=== PATIENT | female | born 1945 | race Caucasian/White ===

== ENCOUNTER 2020-03-06 23:18 | Emergency (ER) | payer OTHER ==
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
[2020-03-07] MEDS ORDERED: LEVALBUTEROL 1.25 MG/3 ML NEB ONE (01:06)
[2020-03-07] MEDS ORDERED: NA CHLORIDE 0.9% 1,000 ML ONE (01:06)
[2020-03-07 01:09] LABS: Basophils % 0.6 % (0-1.3); Lymphocytes % 17.9 % (15.3-44.8); MPV 9.6 fL (7.6-11.3); RBC Red Blood Cell Count 3.76 M/uL (3.86-4.86)
[2020-03-07 01:12] LABS: Protime INR 1.03
[2020-03-07 01:26] LABS: ALT/SGPT 19 U/L (12-78); AST/SGOT 14 U/L (15-37); Albumin 3.6 g/dL (3.4-5.0); Alkaline Phosphatase 52 U/L (45-117); BUN Blood Urea Nitrogen 13 mg/dL (7-18); Bicarbonate 28 mmol/L (21-32); Bilirubin Direct < 0.1 mg/dL (0-0.2); Bilirubin Total 0.2 mg/dL (0.2-1.0); Glucose Level 139 mg/dL (74-106); Magnesium 2.1 mg/dL (1.8-2.4); NT PRO-BNP 185 pg/mL (<450); Potassium 4.4 mmol/L (3.5-5.1); Protein, Total 7.5 g/dL (6.4-8.2); Sodium Level 141 mmol/L (136-145); Troponin (Emerg Dept Use Only) < 0.02 ng/mL (0.0-0.045)
--- NOTE | 2020-03-07 04:16 | ER ---
Nurse's Notes [facility] Name: Desiree Fernandez Age: 74 yrs Sex: Female : 1945 Arrival Date: 03/06/2020 Time: 23:20 Bed 13 Private MD: Diagnosis: Aspiration of fluid as the cause of abnormal reaction of the patient, or of later complication, without mention of misadventure at the time of the procedure;Cough;Gastro-esophageal reflux disease;Gastric contents in esophagus;Chest pain, unspecified Presentation: 03/06 23:26 Chief complaint: Patient states: Noticed chest pressure and spitting up frothy sputum ll1 today. Had ocular surgery today at [facility]. Coronavirus screen: Proceed with normal triage. Patient reports a cough. Patient denies shortness of breath or difficulty breathing. Patient denies measured and/or subjective temperature greater than 100.4F prior to today's visit. Patient denies travel on a cruise ship or to a country the [facility] currently lists as an affected area. Patient denies contact with known and/or suspected case of COVID-19. Ebola Screen: Patient denies travel to an Ebola-affected area in the 21 days before illness onset. Initial Sepsis Screen: Does the patient meet any 2 criteria? No. Patient's initial sepsis screen is negative. Risk Assessment: Do you want to hurt yourself or someone else? Patient reports no desire to harm self or others. Onset of symptoms was March 06, 2020. 23:26 Method Of Arrival: Wheelchair ll1 23:26 Acuity: APURVA 3 ll1 03/07 00:00 Initial Sepsis Screen: Does the patient have a suspected source of infection? No. wh Patient's initial sepsis screen is negative. Historical: - Allergies: 03/06 23:31 scopolamine HBr; ll1 - PMHx: 23:31 Hypertension; SVT; skin graft malignant tumor removed; ll1 - PSHx: 23:31 tumor removed from head; tear duct drainage; ll1 - Immunization history:: Flu vaccine is up to date. - Social history:: Patient/guardian denies using alcohol, street drugs, tobacco products, Smoking status: Patient/guardian denies using. - Family history:: not pertinent. Screenin/03 00:00 Abuse screen: Denies threats or abuse. Denies injuries from another. Nutritional wh screening: No deficits noted. Tuberculosis screening: No symptoms or risk factors identified. Fall Risk None identified. Assessment: 00:00 General: Appears in no apparent distress. Behavior is calm, cooperative, appropriate wh for age. Pain: Complains of pain in chest Pain does not radiate. Pain currently is 2 out of 10 on a pain scale. Quality of pain is described as pressure, Pain began gradually. Neuro: Level of Consciousness is awake, alert, obeys commands, Oriented to person, place, time, situation, Appropriate for age. Cardiovascular: Heart tones S1 S2 Rhythm is regular. Respiratory: Airway is patent Respiratory effort is even, unlabored, Respiratory pattern is regular, symmetrical, Breath sounds are clear bilaterally. GI: Abdomen is flat, non-distended. : No signs and/or symptoms were reported regarding the genitourinary system. EENT: No signs and/or symptoms were reported regarding the EENT system. Derm: Skin is intact, is healthy with good turgor, Skin is pink, warm \T\ dry. normal. Musculoskeletal: Circulation, motion, and sensation intact. 01:15 Reassessment: Patient appears in no apparent distress at this time. No changes from previously documented assessment. Patient and/or family updated on plan of care and expected duration. Pain level reassessed. Patient is alert, oriented x 3, equal unlabored respirations, skin warm/dry/pink. 02:30 Reassessment: Reassessment: Patient appears in no apparent distress at this time. No wh changes from previously documented assessment. Patient and/or family updated on plan of care and expected duration. Pain level reassessed. Patient is alert, oriented x 3, equal unlabored respirations, skin warm/dry/pink. 03:45 Reassessment: Patient appears in no apparent distress at this time. No changes from previously documented assessment. Patient and/or family updated on plan of care and expected duration. Pain level reassessed. Patient is alert, oriented x 3, equal unlabored respirations, skin warm/dry/pink. MD at bedside explaining POC. 04:40 Reassessment: Patient appears in no apparent distress at this time. No changes from previously documented assessment. Patient and/or family updated on plan of care and expected duration. Pain level reassessed. Patient is alert, oriented x 3, equal unlabored respirations, skin warm/dry/pink. Vital Signs: 03/06 23:26 BP 138 / 66; Pulse 62; Resp 18; Temp 98.0; Pulse Ox 98% ; Weight 88.9 kg; Height 5 ft. ll1 5 in. (165.10 cm); Pain 05/14; 03/07 01:15 BP 117 / 69; Pulse 58; Resp 18; Pulse Ox 98% ; 02:30 BP 119 / 80; Pulse 70; Resp 18; Pulse Ox 96% on R/A; wh 03:30 BP 116 / 50; Pulse 67; Resp 18; Pulse Ox 96% on R/A; wh 04:30 BP 106 / 95; Pulse 64; Resp 18; Pulse Ox 95% on R/A; wh 03/06 23:26 Body Mass Index 32.62 (88.90 kg, 165.10 cm) 1 ED Course: 03/06 23:20 Patient arrived in ED. cl3 23:30 Triage completed. [facility] 23:32 Arm band placed on. [facility] 23:52 Tacos Will MD is Attending Physician. [facility] 23:55 EKG completed in triage. Results shown to MD. 1 03/07 00:00 Patient has correct armband on for positive identification. Placed in gown. Bed in low wh position. Call light in reach. Side rails up X 1. hat blocking operator on. Pulse ox on. NIBP on. 00:00 Patient maintains SpO2 saturation greater than 95% on room air. 00:09 Lazarus Carolina is Primary Nurse. 00:40 Inserted saline lock: 20 gauge in right antecubital area, using aseptic technique. Blood collected. 02:16 CT Chest For PE Angio: cp, sob, sp surgery In Process Unspecified. EDMS 02:21 XRAY Chest (1 view) In Process Unspecified. EDMS 04:13 Jorge Luis Jacobsen MD is Referral Physician. lamin Administered Medications: 01:10 Drug: NS 0.9% 1000 ml Route: IV; Rate: 75 ml/hr; Site: right antecubital; 04:39 Follow up: Response: No adverse reaction; IV Status: Completed infusion 01:10 Drug: Xopenex 1.25 mg Route: Inhalation; 04:25 Drug: Rocephin 1 grams Route: IV; Rate: per protocol; Site: right antecubital; 04:39 Follow up: Response: No adverse reaction; IV Status: Completed infusion Outcome: 04:15 Discharge ordered by MD. kimble 04:41 Patient left the ED. Signatures: Dispatcher [employer] EDTacos Carroll MD MD cha Habalo, Lazarus Geoffrey, Tyrone cl3 Marcia Hale RN RN ll1 Corrections: (The following items were deleted from the chart) 03/06 23:53 23:26 Coronavirus screen: Patient denies a cough. Patient denies shortness of breath or ll1 difficulty breathing. Patient denies measured and/or subjective temperature greater than 100.4F prior to today's visit. Patient denies travel on a cruise ship or to a country the [facility] currently lists as an affected area. Patient denies contact with known and/or suspected case of COVID-19. ll1 23:53 23:26 Coronavirus screen: Proceed with normal triage. Patient reports a cough. Patient ll1 denies shortness of breath or difficulty breathing. Patient denies measured and/or subjective temperature greater than 100.4F prior to today's visit. Patient denies travel on a cruise ship or to a country the [facility] currently lists as an affected area. Patient denies contact with known and/or suspected case of COVID-19. ll1
--- NOTE | 2020-03-07 04:17 | EDPHYS ---
Physician Documentation [facility] Name: Desiree Fernandez Age: 74 yrs Sex: Female : 1945 Arrival Date: 03/06/2020 Time: 23:20 Bed 13 Private MD: ED Physician Tacos Will HPI: 03/07 00:15 This 74 yrs old Female presents to ER via Wheelchair with complaints of Chest lamin Pressure. 00:15 The patient or guardian reports chest pain that is located primarily in the substernal lamin area, anterior chest wall, bilaterally. Onset: 9 hour(s) ago. The pain does not radiate. Associated signs and symptoms: Pertinent positives: cough, shortness of breath. The chest pain is described as aching. Duration: The patient or guardian reports multiple episodes, with no pattern. Modifying factors: The symptoms are alleviated by remaining still, the symptoms are aggravated by nothing. Severity of pain: At its worst the pain was mild in the emergency department the pain is unchanged. The patient has not experienced similar symptoms in the past. Historical: - Allergies: 03/06 23:31 scopolamine HBr; ll1 - PMHx: 23:31 Hypertension; SVT; skin graft malignant tumor removed; ll1 - PSHx: 23:31 tumor removed from head; tear duct drainage; ll1 - Immunization history:: Flu vaccine is up to date. - Social history:: Patient/guardian denies using alcohol, street drugs, tobacco products, Smoking status: Patient/guardian denies using. - Family history:: not pertinent. ROS: 03/07 00:15 Constitutional: Negative for fever, chills, and weight loss, Eyes: Negative for injury, lamin pain, redness, and discharge, ENT: Negative for injury, pain, and discharge, Neck: Negative for injury, pain, and swelling, Abdomen/GI: Negative for abdominal pain, nausea, vomiting, diarrhea, and constipation, Back: Negative for injury and pain, : Negative for injury, bleeding, discharge, and swelling, MS/Extremity: Negative for injury and deformity, Skin: Negative for injury, rash, and discoloration, Neuro: Negative for headache, weakness, numbness, tingling, and seizure, Psych: Negative for depression, anxiety, suicide ideation, homicidal ideation, and hallucinations, Allergy/Immunology: Negative for hives, rash, and allergies, Endocrine: Negative for neck swelling, polydipsia, polyuria, polyphagia, and marked weight changes, Hematologic/Lymphatic: Negative for swollen nodes, abnormal bleeding, and unusual bruising. Cardiovascular: Positive for chest pain. Respiratory: Positive for cough, foamy. MS/extremity: Negative for acute changes. Exam: 00:17 Constitutional: This is a well developed, well nourished patient who is awake, alert, lamin and in no acute distress. Head/Face: Normocephalic, atraumatic. Eyes: Pupils equal round and reactive to light, extra-ocular motions intact. Lids and lashes normal. Conjunctiva and sclera are non-icteric and not injected. Cornea within normal limits. Periorbital areas with no swelling, redness, or edema. ENT: Nares patent. No nasal discharge, no septal abnormalities noted. Tympanic membranes are normal and external auditory canals are clear. Oropharynx with no redness, swelling, or masses, exudates, or evidence of obstruction, uvula midline. Mucous membranes moist. Neck: Trachea midline, no thyromegaly or masses palpated, and no cervical lymphadenopathy. Supple, full range of motion without nuchal rigidity, or vertebral point tenderness. No Meningismus. Chest/axilla: Normal chest wall appearance and motion. Nontender with no deformity. No lesions are appreciated. Cardiovascular: Regular rate and rhythm with a normal S1 and S2. No gallops, murmurs, or rubs. Normal PMI, no JVD. No pulse deficits. Respiratory: Lungs have equal breath sounds bilaterally, clear to auscultation and percussion. No rales, rhonchi or wheezes noted. No increased work of breathing, no retractions or nasal flaring. Abdomen/GI: Soft, non-tender, with normal bowel sounds. No distension or tympany. No guarding or rebound. No evidence of tenderness throughout. Back: No spinal tenderness. No costovertebral tenderness. Full range of motion. Female : Normal external genitalia. Skin: Warm, dry with normal turgor. Normal color with no rashes, no lesions, and no evidence of cellulitis. MS/ Extremity: Pulses equal, no cyanosis. Neurovascular intact. Full, normal range of motion. Neuro: Awake and alert, GCS 15, oriented to person, place, time, and situation. Cranial nerves II-XII grossly intact. Motor strength 5/5 in all extremities. Sensory grossly intact. Cerebellar exam normal. Normal gait. Psych: Awake, alert, with orientation to person, place and time. Behavior, mood, and affect are within normal limits. 02:43 ECG was reviewed by the Attending Physician. [facility] 02:44 ECG was reviewed by the Attending Physician. [facility] Vital Signs: 03/06 23:26 BP 138 / 66; Pulse 62; Resp 18; Temp 98.0; Pulse Ox 98% ; Weight 88.9 kg; Height 5 ft. ll1 5 in. (165.10 cm); Pain 8/10; 03/07 01:15 BP 117 / 69; Pulse 58; Resp 18; Pulse Ox 98% ; wh 02:30 BP 119 / 80; Pulse 70; Resp 18; Pulse Ox 96% on R/A; 03:30 BP 116 / 50; Pulse 67; Resp 18; Pulse Ox 96% on R/A; wh 04:30 BP 106 / 95; Pulse 64; Resp 18; Pulse Ox 95% on R/A; wh 03/06 23:26 Body Mass Index 32.62 (88.90 kg, 165.10 cm) ll1 MDM: 03/06 23:52 Patient medically screened. lamin 03/07 00:18 Differential diagnosis: abnormal EKG, acute myocardial infarction, chest wall pain, lamin costochondritis, hiatal hernia, pleurisy, pneumonia, pulmonary embolus, stable angina, unstable angina. HEART Score: History: Slightly Suspicious (0), ECG: Non specific repolarization disturbance / LBTB / PM (1), Age: > or = 65 years (2), Risk Factors: 1 or 2 risk factors (1), [Hypertension] [Obesity]. The patient was not given aspirin in the Emergency Department. Aspirin not given, patient refused. The patient's deep vein thrombosis risk score was calculated as follows: Total Score: 0. This patient was found to be at low risk for a deep vein thrombosis by using the Well's assessment criteria. The patient's pulmonary embolism risk score was calculated as follows: Total Score: 0-2 points. This patient was found to be at low risk for a pulmonary embolism by using the Well's assessment criteria. AKOSUA Risk Score: 1 - patient's age is greater or equal to 65 years, TOTAL SCORE = 1. Data reviewed: vital signs, nurses notes, lab test result(s), EKG, radiologic studies, plain films. Data interpreted: compliance monitor: rate is 62 beats/min, rhythm is normal sinus rhythm, Pulse oximetry: on room air is 98 %. Test interpretation: by ED physician or midlevel provider: ECG, plain radiologic studies. Counseling: I had a detailed discussion with the patient and/or guardian regarding: the historical points, exam findings, and any diagnostic results supporting the discharge/admit diagnosis, lab results, radiology results. 03:10 Awaiting: CT scan results, waiting on read. ED course: pt swallows without difficulty, lamin no cp, labs trop x2 normal. 04:10 ED course: ct confirms upper lobe mosiac pattern, distal esophagus is moderately lamin patulous and debris filled. ED course: all results explained to the patient, will take abx, elevate head of bed, use incentive spirometer, follow up and return if symptoms increase or persist. 03/07 00:13 Order name: Basic Metabolic Panel; Complete Time: 01:52 [facility] 03/07 00:13 Order name: CBC with Diff; Complete Time: 01:22 [facility] 03/07 00:13 Order name: LFT's; Complete Time: 01:52 [facility] 03/07 00:13 Order name: Magnesium; Complete Time: 01:52 [facility] 03/07 00:13 Order name: NT PRO-BNP; Complete Time: 01:52 [facility] 03/07 00:13 Order name: PT-INR; Complete Time: 01:22 [facility] 03/07 00:13 Order name: Troponin (emerg Dept Use Only); Complete Time: 01:52 [facility] 03/07 00:13 Order name: XRAY Chest (1 view) [facility] 03/07 00:14 Order name: INCENTIVE SPIROMETRY [facility] 03/07 01:03 Order name: D-Dimer; Complete Time: 01:22 [facility] 03/07 01:23 Order name: CT Chest For PE Angio: cp, sob, sp surgery [facility] 03/07 01:49 Order name: Troponin (emerg Dept Use Only); Complete Time: 03:09 lp1 03/06 23:53 Order name: EKG - Nurse/Tech; Complete Time: 23:55 ll1 03/07 00:13 Order name: EKG; Complete Time: 00:14 lamin 03/07 00:13 Order name: Cardiac monitoring; Complete Time: [facility] 03/07 00:13 Order name: IV Saline Lock; Complete Time: [facility] 03/07 00:13 Order name: Labs collected and sent; Complete Time: : [facility] 03/07 00:13 Order name: O2 Per Protocol; Complete Time: 00: [facility] 03/07 00:13 Order name: O2 Sat Monitoring; Complete Time: [facility] 03/07 02:14 Order name: EKG; Complete Time: 02:15 [facility] 03/07 02:14 Order name: EKG - Nurse/Tech; Complete Time: 02:24 [facility] 03/07 03:10 Order name: PO challenge; Complete Time: 03:30 [facility] EC:43 Rate is 60 beats/min. Rhythm is regular. QRS [place] is Normal. SC interval is normal. QRS lamin interval is normal. QT interval is normal. No Q waves. T waves are Normal. No ST changes noted. Clinical impression: Normal ECG and No evidence of ischemia. Interpreted by me. Reviewed by me. 02:44 Rate is 67 beats/min. Rhythm is regular. QRS [place] is Normal. SC interval is normal. QRS lamin interval is normal. QT interval is normal. No Q waves. T waves are Normal. No ST changes noted. Clinical impression: Normal ECG and No evidence of ischemia. Interpreted by me. Reviewed by me. Administered Medications: 01:10 Drug: NS 0.9% 1000 ml Route: IV; Rate: 75 ml/hr; Site: right antecubital; 04:39 Follow up: Response: No adverse reaction; IV Status: Completed infusion 01:10 Drug: Xopenex 1.25 mg Route: Inhalation; 04:25 Drug: Rocephin 1 grams Route: IV; Rate: per protocol; Site: right antecubital; 04:39 Follow up: Response: No adverse reaction; IV Status: Completed infusion Disposition: 03/07/20 04:15 Discharged to Home. Impression: Aspiration of fluid as the cause of abnormal reaction of the patient, or of later complication, without mention of misadventure at the time of the procedure, Cough, Gastro-esophageal reflux disease, Gastric contents in esophagus, Chest pain, unspecified. - Condition is Stable. - Discharge Instructions: Nonspecific Chest Pain, Cool Mist Vaporizer, Incentive Spirometer, Nonspecific Chest Pain, Leji-se-Kews, Aspiration Precautions, Adult, Aspiration Pneumonia. - Prescriptions for Augmentin 875- 125 mg Oral Tablet - take 1 tablet by ORAL route every 12 hours for 7 days; 14 tablet. - Medication Reconciliation Form, Thank You Letter, Antibiotic Education, Prescription Opioid Use form. - Follow up: Private Physician; When: 2 - 3 days; Reason: Recheck today's complaints, Continuance of care, Re-evaluation by your physician. Follow up: Jorge Luis Jacobsen MD; When: 2 - 3 days; Reason: Recheck today's complaints, Continuance of care, Re-evaluation by your physician. - Problem is new. - Symptoms have improved. Signatures: Dispatcher [employer] Tacos Carroll MD MD cha Habalo, Winsy wh Lewis, Lynsay RN RN ll1 Corrections: (The following items were deleted from the chart) 01:03 00:15 D-DIMER+[id number].BRZ ordered. [facility] 04:41 04:15 03/07/2020 04:15 Discharged to Home. Impression: Aspiration of fluid as the cause wh of abnormal reaction of the patient, or of later complication, without mention of misadventure at the time of the procedure; Cough; Gastro-esophageal reflux disease; Gastric contents in esophagus; Chest pain, unspecified. Condition is Stable. Forms are Medication Reconciliation Form, Thank You Letter, Antibiotic Education, Prescription Opioid Use. Follow up: Private Physician; When: 2 - 3 days; Reason: Recheck today's complaints, Continuance of care, Re-evaluation by your physician. Follow up: Jorge Luis Jacobsen; When: 2 - 3 days; Reason: Recheck today's complaints, Continuance of care, Re-evaluation by your physician. Problem is new. Symptoms have improved. laimn
[2020-03-07] MEDS ORDERED: CEFTRIAXONE/SWI 1gm 1 GM/10 ML SYR ONE (04:35)
[2020-03-07 04:49] VITALS: TEMP 98
[2020-03-07 04:54] VITALS: BP 106/95; O2SAT 95
--- NOTE | 2020-03-07 09:40 | RAD REPORT ---
EXAM DESCRIPTION: Virgilio Single View03/07/2020 2:20 am CLINICAL HISTORY: Chest pain COMPARISON: 2010 FINDINGS: The lungs appear clear of acute infiltrate. The heart appears borderline enlarged. Small to moderate hiatal hernia IMPRESSION: No acute abnormalities displayed
--- NOTE | 2020-03-07 16:29 | EKG ---
Test Date: 2020-03-06 Test Time: 23:45:57 Bioengineer: LML MEASUREMENT RESULTS: Intervals: Rate: 60 OH: 172 QRSD: 88 QT: 402 QTc: 402 Wheeler: P: 17 OH: 172 QRS: -19 T: 9 INTERPRETIVE STATEMENTS: Normal sinus rhythm with sinus arrhythmia Nonspecific ST and T wave abnormality Abnormal ECG Compared to ECG 03/06/2020 23:39:56 ST (T wave) deviation now present Electronically Signed On 03-07-20 16:27:33 CDT by Joe Gonzalez
--- NOTE | 2020-03-07 16:29 | EKG ---
Test Date: 2020-03-07 Test Time: 02:40:20 Yarder Puncher: BROOKE MEASUREMENT RESULTS: Intervals: Rate: 67 CA: 182 QRSD: 92 QT: 428 QTc: 452 Mcclure: P: 29 CA: 182 QRS: -19 T: 4 INTERPRETIVE STATEMENTS: Normal sinus rhythm Normal ECG Compared to ECG 03/06/2020 23:45:57 Sinus arrhythmia no longer present ST (T wave) deviation no longer present Electronically Signed On 03-07-20 16:27:30 CDT by Joe Gonzalez
--- NOTE | 2020-03-07 17:19 | RAD REPORT ---
EXAM DESCRIPTION: CT - Chest For Pe Angio - 03/07/2020 7:04 am CLINICAL HISTORY: Chest pain; Dyspnea; Cough TECHNIQUE: Contiguous axial images obtained through the chest during angiographic phase following th e uneventful administration of IV contrast. Sagittal and coronal reformatted images were provided. [place] P reformatted images were provided. This exam was performed according to our departmental dose-optimization program, which includes autom ated exposure control, adjustment of the mA and/or kV according to patient size and/or use of iterati ve reconstruction technique. COMPARISON: No prior exams provided for comparison. FINDINGS: Diagnostic quality: There is good opacification of the pulmonary arterial tree. Motion art ifact degrades image quality and limits evaluation of segmental and subsegmental vessels. Lungs: Mild bilateral upper lobe mosaic attenuation. Airways are patent. Pleura: No effusion. No pneumothorax. Heart and pericardium: The heart is enlarged. No pericardial effusion. Mediastinum and todd: No pathologically enlarged lymph nodes. The distal esophagus is moderately patu lous and debris-filled. Lower neck and chest wall: Unremarkable Vessels: No pulmonary arterial filling defects. Mild atherosclerotic disease. No thoracic aortic aneu rysm. Upper abdomen: Prior gastric banding. Bones: Mild multilevel spondylosis. IMPRESSION: 1. Motion artifact degrades image quality and limits evaluation of segmental and subsegmental vessel s. No central pulmonary embolic disease. 2. Mild bilateral upper lobe mosaic attenuation. Differential considerations include small airways disease, small vessel disease and interstitial infiltrates. 3. Prior gastric banding. The distal esophagus is moderately patulous and debris-filled. 4. Other findings as above. Electronically signed by: Lorne Vargas MD 03/07/2020 2:45 AM CDT Due to temporary technical issues with the PACS/Fluency reporting system, reports are being signed by the in house radiologist without review a sa courtesy to ensure prompt reporting. The interpreting r adiologist is fully responsible for the content of the report.
== END 2020-03-07 04:41 | disposition home or self-care (01) ==
LOC: ER 23:18
DX: R05 Cough (principal); K21.9 Gastro-esophageal reflux disease without esophagitis; Y84.4 Aspiration of fluid as the cause of abnormal reaction of the patient, or of later complication, without mention of misadventure at the time of the procedure; K22.8 Other specified diseases of esophagus; I10 Essential (primary) hypertension; Z88.8 Allergy status to other drugs, medicaments and biological substances
CPT/HCPCS: 96361; 93005 ×2; 85025; 80048; 36415; 83735; 85610; 85379; 80076; 84484 ×2; 83880; 71275; 71045; 96374; 99285; Q9967; J0696; J7030

== ENCOUNTER 2021-11-05 05:19 | Emergency (ER) | payer OTHER ==
--- OUTSIDE RECORDS SUMMARY | 2021-11-05 05:23 | XMS REPORT | Continuity of Care Document ---
:1945 Author Organization [facility] [place] t Address [address] [place] [address] Care Team Providers Name Role Phone [phone] Primary Care Physician Unavailable CASEY HUSAIN Attending Clinician Unavailable Casey Husain MD Attending Clinician Only, Test Attending Clinician Unavailable Pob, Lab Main Attending Clinician Unavailable Doctor Unassigned, Name Attending Clinician Unavailable STACEY MCCOY Attending Clinician Unavailable Usman ARMSTRONG, Loida Attending Clinician Malgorzata ARMSTRONG Attending Clinician Loida ARTIS Attending Clinician Unavailable Criss ARMSTRONG Attending Clinician MICHI Attending Clinician Unavailable CASEY HUSAIN Admitting Clinician Unavailable Casey Husain MD Admitting Clinician Payers Payer Name Policy Type Policy Number Effective Date Expiration Date S марина AETNA MANAGED [id number] 2020 MEDICARE PPO-NIESHA 00:00:00 AETNA MEDICAREAETNA [id number] 2016 MD Ashlie zamudio MEDICARE 00:00:00 [id number] -[place], [place] [address]Medicare Problems Condition Condition Condition Status Onset Resolution Last Treating Co mments Source Name Details Category Date Date Treatment Clinician Date 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 Allergies, Adverse Reactions, Alerts Allergy Allergy Status Severity Reaction(s) Onset Inactive Treating Comm ents Source Name Type Date Date Clinician SCOPOLAM DRUG Active Med Hallucinates Un lin INE INGREDI 3-30 ity of 00:00: [place] 00 Medical Branch Scopolam Propensi Active Hallucinatio Univers ine ty to ns 3-30 ity of adverse 00:00: [place] reaction 00 Medical s to Branch drug Family History Family Member Diagnosis Comments Start Date Stop Date Source Natural father Lung cancer MD [place] on Natural mother Breast cancer MD Arnaud hogan Social History Social Habit Start Date Stop Date Quantity Comments Source Exposure to Not sure [facility] SARS-CoV-2 (event) [facility] History of tobacco Cigarette Smoker MD Will use Alcohol intake 2020-05-14 2020-05-14 Current drinker MD Ashlie zamudio 00:00:00 00:00:00 of alcohol (finding) Cigarettes smoked 2019-03-25 2019-03-25 MD Arnaud hogan current (pack per 00:00:00 00:00:00 day) - Reported Cigarette 2019-03-25 2019-03-25 MD Will pack-years 00:00:00 00:00:00 Tobacco use and 2019-03-25 2019-03-25 Smokeless MD [place] on exposure 00:00:00 00:00:00 tobacco non-user Tobacco Comment 2019-03-14 2019-03-14 currently vaping MD Will 00:00:00 00:00:00 [birth year] MD [place] on 00:00:00 00:00:00 Smoking Status Start Date Stop Date Source Never sm[facility] Branch Current every day 2021-07-16 00:00:00 [facility] smoker [facility] Branch Ex-smoker 2019-03-25 00:00:00 2019-03-25 00:00:00 MD Kitchen son Medications Ordered Filled Start Stop Current Ordering Indication Dosage Frequency Signature Comments Components Source Medication Medication Date Date Medication? Clinician (SIG) Name Name gentamicin 2020-10 Yes PRN, Univers injection 0-14 Starting ity of 15:39: on [place] [id number] 10/14/21 Medical at 1039, Branch Until Discontinu ed, SAMMI, Intra-op DUOVISC 2020-10 Yes PRN, Univers (DUOVISC 0-14 Starting ity of VISCO 15:39: on Emily [place] ELASTIC) 3 00 07/18/21 Medic al %-4 %(0.5 at 1039, Branch mL) 1 % Until (0.55 mL) Discontinu intraocular ed, injection Routine, Intra-op gentamicin 2020-10- No PRN, Univer s injection 0-14 07-18 Starting ity o f 15:39: 19:24 on Emily [place] 00 :48 07/18/21 Medical at 1039, Branch Until Emily 07/18/21 at 1424, SAMMI, Intra-op DUOVISC 2020-10- No PRN, Univers (DUOVISC 0-14 07-18 Starting ity of VISCO 15:39: 19:[address] [facility] ELASTIC) 3 00 :48 07/18/21 Medic al %-4 %(0.5 at 1039, Branch mL) 1 % Until Emily (0.55 mL) 07/18/21 intraocular at 1424, injection Routine, Intra-op neomycin-po 2020-10 Yes PRN, Univer s lymyxin-dex 0-14 Starting ity of amethasone 15:38: on Thu (MAXITROL) 00 07/18/21 Medic al 3.5 at 1038, Branch mg/g-10,000 Until unit/g-0.1 Discontinu % ed, ophthalmic Routine, ointment Intra-op dexamethaso 2020-10 Yes PRN, Univer s ne 0-14 Starting ity of (DECADRON 15:38: on [facility] [place] PHOSPHATE) 00 07/18/21 Medic al injection at 1038, Branch Until Discontinu ed, Routine, Intra-op dexamethaso 2020-10- No PRN, Unive rs ne 0-14 10-14 Starting ity of (DECADRON 15:38: 19:[address] [facility] PHOSPHATE) 00 :48 07/18/21 Medic al injection at 1038, Branch Until Emily 07/18/21 at 1424, Routine, Intra-op neomycin-po 2020-10- No PRN, Unive rs lymyxin-dex 0-14 10-14 Starting ity of amethasone 15:38: 19:24 on [facility] [place] (MAXITROL) 00 :48 07/18/21 Medic al 3.5 at 1038, Branch mg/g-10,000 Until Emily unit/g-0.1 07/18/21 % at 1424, ophthalmic Routine, ointment Intra-op NaCl 0.9% 2020-10 Yes CONTINUOUS Un lin (NS) 0-14 PRN, [place]y of injection 15:28: [place] 00 on [facility] 07/18/21 Branch at 1028, Until Discontinu ed, Routine, Intra-op EPINEPHrine 2020-10 Yes PRN, Univer s (PF) 0-14 Starting ity of 1:1,000 (1 15:28: on [facility] [place] mg/mL) 00 07/18/21 Medical (ADRENALIN at 1028, Branc h (PF)) Until injection Discontinu ed, Routine, Intra-op ceFAZolin 2020-10 Yes CONTINUOUS Un lin (ANCEF) 0-14 PRN, ity of injection 15:28: [place] 00 on [facility] 07/18/21 Branch at 1028, Until Discontinu ed, SAMMI, Intra-op balanced 2020-10 Yes PRN, Univers salt soln 0-14 Starting ity of no.2 irrig. 15:28: on [facility] [place] (BSS) 00 07/18/21 Medical ophthalmic at 1028, Branc h solution Until Discontinu ed, Routine, Intra-op NaCl 0.9% 2020-10- No CONTINUOUS U nivers (NS) 0-14 - PRN, ity of injection 15:28: 19:24 Starting [place] 00 :48 on [facility] 07/18/21 Branch at 1028, Until Emily 07/18/21 at 1424, Routine, Intra-op EPINEPHrine 2020-10- No PRN, Unive rs (PF) 0-14 -14 Starting ity of 1:1,000 (1 15:28: 19:24 on [facility] [place] mg/mL) 00 :48 07/18/21 Medical (ADRENALIN at 1028, Branc h (PF)) Until Emily injection 07/18/21 at 1424, Routine, Intra-op ceFAZolin 2020-10- No CONTINUOUS U nivers (ANCEF) 0-14 10-14 PRN, ity of injection 15:28: 19:24 Starting [place] as 00 :48 on Emily Medical 07/18/21 Branch at 1028, Until Emily 07/18/21 at 1424, SAMMI, Intra-op balanced 2020-10- No PRN, Univers salt soln 0-14 10-14 Starting ity o f no.2 irrig. 15:28: 19:24 on Emily [place] (BSS) 00 :48 07/18/21 Medical ophthalmic at 1028, Branc h solution Until Emily 07/18/21 at 1424, Routine, Intra-op water for 2020-10 Yes PRN, Univers irrigation 0-14 Starting ity o f irrigation 15:25: on Emily [place] solution 00 07/18/21 Medical at 1025, Branch Until Discontinu ed, Routine, Intra-op water for 2020-10- No PRN, Univers irrigation 0-14 10-14 Starting ity of irrigation 15:25: 19:24 on [facility] [place] solution 00 :48 07/18/21 Medical at 1025, Branch Until Emily 07/18/21 at 1424, Routine, Intra-op eye block 2020-10 Yes PRN, Univers syringe 11 0-14 Starting ity o f mL 15:23: on Emily [place] 00 07/18/21 Medical at 1023, Branch Until Discontinu ed, Intra-op tetracaine 2020-10 Yes PRN, Univers (PONTOCAINE 0-14 Starting ity of ) 0.5 % 15:23: on Emily [place] ophthalmic 00 07/18/21 Medic al drops at 1023, Branch Until Discontinu ed, Routine, Intra-op eye block 2020-10- No PRN, Univers syringe 11 0-14 10-14 Starting ity of mL 15:23: 19:24 on Emily [place] 00 :48 07/18/21 Medical at 1023, Branch Until Emily 07/18/21 at 1424, Intra-op tetracaine 2020-10- No PRN, Univer s (PONTOCAINE 0-14 10-14 Starting ity of ) 0.5 % 15:23: 19:24 on Emily [place] ophthalmic 00 :48 07/18/21 Medic al drops at 1023, Branch Until Emily 07/18/21 at 1424, Routine, Intra-op mydriatic 2020-10- No .5mL 0.5 mL, Univ ers #5 0-14 10-14 Right Eye, ity of ophthalmic 14:00: 13:56 ONCE, 1 [place] solution 00 :00 dose, On Medical 0.5 mL [place] Branch syringe 07/18/21 at 0900, Routine, DSU Pre-op lactated 2020-10- No 1000mL at 42 Unive rs ringers IV 0-14 10-14 mL/hr, ity of infusion 14:00: 13:52 1,000 mL, [place] 1,000 mL 00 :00 IV Medical Infusion, Branch ONCE, 1 dose, On Emily 07/18/21 at 0900, Routine, DSU Pre-op mydriatic 2020-10- No .5mL 0.5 mL, Univ ers #5 0-14 10-14 Right Eye, ity of ophthalmic 14:00: 13:56 ONCE, 1 [place] solution 00 :00 dose, On Medical 0.5 mL [place] Branch syringe 07/18/21 at 0900, Routine, DSU Pre-op lactated 2020-10- No 1000mL at 42 Unive rs ringers IV 0-14 10-14 mL/hr, ity of infusion 14:00: 13:52 1,000 mL, [place] 1,000 mL 00 :00 IV Medical Infusion, Branch ONCE, 1 dose, On Emily 07/18/21 at 0900, Routine, DSU Pre-op levETIRAcet 2020-10 Yes 500mg Take 500 U nivers am (KEPPRA) 0-14 mg by ity of 500 mg 12:24: mouth 2 [place] tablet 48 (two) Medical times Branch daily. lisinopril 2020-10 Yes 5mg Take 5 mg Un lin (PRINIVIL,Z 0-14 by mouth ity of ESTRIL) 5 12:24: daily. [place] mg tablet 48 Medical Branch HYDROcodone 2020-10 Yes 1{tbl} Take 1 Tab Univers -acetaminop 0-14 by mouth ity of hen (NORCO) 12:24: every 6 [place] 7.5-325 mg 48 (six) Medical per tablet hours as Branc h needed for Pain. aspirin-wade 2020-10 Yes 1{tbl} Take 1 Un lin taminophen- 0-14 tablet by ity of caffeine 12:24: mouth [place] (EXCEDRIN 48 every 6 Medical MIGRAINE) (six) Branch 250-250-65 hours as mg per needed for tablet Pain. levETIRAcet 2020-10 Yes 500mg Take 500 U nivers am (KEPPRA) 0-14 mg by ity of 500 mg 12:24: mouth 2 [place] tablet 48 (two) Medical times Branch daily. lisinopril 2020-10 Yes 5mg Take 5 mg Un lin (PRINIVIL,Z 0-14 by mouth ity of ESTRIL) 5 12:24: daily. [place] mg tablet 48 Medical Branch HYDROcodone 2020-10 Yes 1{tbl} Take 1 Tab Univers -acetaminop 0-14 by mouth ity of hen (NORCO) 12:24: every 6 [place] as 7.5-325 mg 48 (six) Medical per tablet hours as Branc h needed for Pain. aspirin-wade 2020-10 Yes 1{tbl} Take 1 Un lin taminophen- 0-14 tablet by ity of caffeine 12:24: mouth [place] (EXCEDRIN 48 every 6 Medical MIGRAINE) (six) Branch 250-250-65 hours as mg per needed for tablet Pain. co-enzyme Yes 30mg Take 30 mg MD Q-10 30 mg 2-12 by mouth Imtiaz so capsule 11:06: daily. n 53 ZINC Yes 1{tbl} Take 1 MD ACETATE 2-12 tablet by Anderso ORAL 11:06: mouth n 53 daily. BIOTIN ORAL Yes 1{tbl} Take 1 MD 2-12 tablet by Anderso 11:06: mouth n 53 daily. CANNABIDIOL Yes 1{appli Take 1 M D , CBD, 2-12 cation} applicatio Arnaud rso EXTRACT 11:06: n by mouth n ORAL 53 daily. vitamin B Yes 1{capsu Take 1 MD complex 2-12 le} capsule by Ronnie o capsule 11:06: mouth n 53 daily. TURMERIC Yes Take by MD ORAL 2-12 mouth Anderso 11:06: daily. n 53 meloxicam Yes MD (MOBIC) 15 2-10 Anderso mg tablet 00:00: n 00 HYDROcodone Yes MD -acetaminop 1-14 Anderso hen (NORCO) 00:00: n 10 mg-325 00 mg per tablet cyclobenzap Yes TAKE 1 MD rine 9-02 TABLET BY Anderso (FLEXERIL) 00:00: MOUTH ONCE n 5 mg tablet 00 DAILY metoprolol Yes Supraventri 25mg Take 1 MD succinate 7-29 cular tablet (25 And erso (TOPROL XL) 00:00: tachycardia mg) by n 25 mg 24 hr 00 mouth tablet daily. acetaminoph Yes Squamous 650mg Take 2 MD en 7-26 cell tablets Anderso (TYLENOL) 00:00: carcinoma (650 mg) n 325 mg 00 of skin of by mouth tablet scalp every 4 (four) hours as needed for mild pain, headaches or fever. traMADol Yes Squamous 50mg Take 1 MD (ULTRAM) 50 7-26 cell tablet (50 An derso mg tablet 00:00: carcinoma mg) by n 00 of skin of mouth scalp every 6 (six) hours as needed for moderate pain. lisinopril Yes 5mg Take 5 mg Un lin (PRINIVIL,Z 3-31 by mouth ity of ESTRIL) 5 10:11: daily. [place] mg tablet 55 Medical Branch HYDROcodone Yes 1{tbl} Take 1 Tab Univers -acetaminop 3-31 by mouth ity of hen (NORCO) 10:11: every 6 [place] as 7.5-325 mg 55 (six) Medical per tablet hours as Branc h needed for Pain. levETIRAcet Yes 500mg Take 500 U nivers am (KEPPRA) 3-31 mg by ity of 500 mg 10:11: mouth 2 [place] tablet 55 (two) Medical times Branch daily. lisinopril Yes 5mg Take 5 mg Un lin (PRINIVIL,Z 3-31 by mouth ity of ESTRIL) 5 10:11: daily. [place] mg tablet 55 Medical Branch HYDROcodone 2015-0 Yes 1{tbl} Take 1 Tab Univers -acetaminop 3-31 by mouth ity of hen (NORCO) 10:11: every 6 [place] as 7.5-325 mg 55 (six) Medical per tablet hours as Branc h needed for Pain. levETIRAcet 2015- Yes 500mg Take 500 U nivers am (KEPPRA) 3-31 mg by ity of 500 mg 10:11: mouth 2 [place] tablet 55 (two) Medical times Branch daily. lisinopril Yes 5mg Take 5 mg Un lin (PRINIVIL,Z 3-31 by mouth ity of ESTRIL) 5 10:11: daily. [place] mg tablet 55 Medical Branch HYDROcodone 0 Yes 1{tbl} Take 1 Tab Univers -acetaminop 3-31 by mouth ity of hen (NORCO) 10:11: every 6 [place] as 7.5-325 mg 55 (six) Medical per tablet hours as Branc h needed for Pain. levETIRAcet Yes 500mg Take 500 U nivers am (KEPPRA) 3-31 mg by ity of 500 mg 10:11: mouth 2 [place] tablet 55 (two) Medical times Roxie daily. Vital Signs Vital Name Observation Time Observation Value Comments Source Systolic blood 2021-07-18 15:57:00 118 mm[facility]Hg[facility] Diastolic blood 2021-07-18 15:57:00 72 mm[Hg] [facility] Heart rate 2021-07-18 15:57:00 68 /min [facility] Respiratory rate 2021-07-18 15:57:00 22 /min [facility] Oxygen saturation in 2021-07-18 15:57:00 97 /min [facility] Arterial blood by [facility] Pulse oximetry Branch Body temperature 2021-07-18 15:46:00 36.17 Mabel [facility] Body weight 2021-07-05 17:14:00 80.7 kg [facility] BMI 2021-07-05 17:14:00 29.61 kg/m2 [facility] Oxygen saturation in 2021-07-18 15:57:00 97 /min [facility] Arterial blood by [facility] Pulse oximetry Branch Systolic blood 2021-07-18 15:57:00 118 mm[Hg] Univer sity of pressure [facility] Diastolic blood 2021-07-18 15:57:00 72 mm[Hg] Unive [facility] Heart rate 2021-07-18 15:57:00 68 /min [facility] Respiratory rate 2021-07-18 15:57:00 22 /min [facility] Body temperature 2021-07-18 15:46:00 36.17 Mabel [facility] Body weight 2021-07-05 17:14:00 80.7 kg [facility] BMI 2021-07-05 17:14:00 29.61 kg/m2 [facility] WEIGHT 2020-06-04 11:57:00 87.7 kg Systolic blood 2020-11-16 17:00:58 156 mm[Hg] pressure Diastolic blood 2020-11-16 17:00:58 80 mm[Hg] MD Ashlie zamudio pressure Heart rate 2020-11-16 17:00:58 74 /min MD Kitchen son Body temperature 2020-11-16 17:00:58 36.61 Mabel MD Garrett mcintosh Oxygen saturation in 2020-11-16 17:00:58 98 /min MD Will Arterial blood by Pulse oximetry Procedures Procedure Date / Time Performing Source Performed Clinician PHACOEMULSIFICATION OF 2021-07-18 Nikita Husain [facility] CATARACT WITH INTRAOCULAR 15:10:00 Casey Karimi [facility] LENS IMPLANT ASSIGNMENT OF BENEFITS 2021-07-11 Doctor Unassigned, [facility] 20:26:18 [place] [facility] Plan of Care Planned Activity Planned Date Details Comments Source Future Scheduled Test 1950 00:00:00 COVID-19 Vaccination MD Will (1) [code = COVID-19 Vaccination (1)] Encounters Start End Encounter Admission Attending Care Care Encounter Source Date/Time Date/Time Type Type Clinicians Facility Department ID 2021-08-06 Outpatient R RODRIGUE [facility] OPH [id number] [facility] 05:01:38 NIKITA amezquita [facility] 2021-07-18 2021-07-18 Hospital Rodrigue, [facility] [id number] Univers 08:31:00 11:21:00 Encounter Nikita King [id number] ity of [place] [id number] [place] [id number] [facility] 071 Branch 2021-07-18 2021-07-18 Surgery Rodrigue, [facility] [id number] Univers 10:28:00 11:05:00 Nikita King [id number] i ty of [place] [id number] [place] [id number] [facility] 020 Branch 2021-07-16 2021-07-16 Laboratory Only, Adc Test [facility] [id number]. [id number] Univers 14:39:39 14:54:39 Only RodrigueNikita russell 350.1.1 3.10 ity of [place] [id number] [place] [id number] [address] 2021-07-16 2021-07-16 Outpatient R RODRIGUE [facility] [id number] Univers 14:30:00 14:30:00 NIKITA amezquita [facility] 2021-07-11 2021-07-11 Powder Cutting Operator Kacie, Adc Lab Main [facility] 1.2.8 [id number] Univers 15:32:27 15:47:27 Visit Nikita Husain 350.1.1 3.10 ity [place] [id number] [place] [facility] [id number] [facility] 353 [facility] 2021-07-11 2021-07-11 [facility] [id number] Univers 15:45:00 15:45:00 NIKITA amezquita [facility] 2021-07-11 2021-07-11 Orders Doctor JAIN [id number] Univers 00:00:00 00:00:00 Only Unassigned, KIRSTIE [id number] ity of [place] [facility] [id number] [place] as [id number] [place] [address] Branch 2020-12-27 2020-12-27 Outpatient DARIUS [facility] [id number] [facility] 09:44:00 23:59:00 [place] 2020-11-16 2020-11-16 Outpatient MIRTA ARTIS MDA MDA [id number] 10:56:37 11:56:29 SAMANTHA armstrong 2020-06-04 2020-06-04 Outpatient MIRTA ARTIS MDA MDA [id number] 11:56:07 23:59:00 SAMANTHA armstrong 2020-05-14 2020-05-14 Outpatient WANDA AVITIA MDA MDA [id number] 06:52:46 23:59:00 Ronnie armstrong 2020-05-14 2020-05-14 Outpatient MIRTA ARTIS MDA MDA [id number] 09:45:58 10:28:43 SAMANTHA armstrong 2020-05-14 2020-05-14 Outpatient WANDA AVITIA MDA MDA [id number] 06:52:00 06:52:00 Ronnie armstrong 2020-03-06 2020-03-06 Outpatient DARIUS MHH [facility] [id number] [facility] 09:58:00 09:58:00 [place] 2020-02-20 2020-02-20 Outpatient WANDA AVITIA MDA MDA [id number] 08:01:04 08:01:04 Ronnie armstrong 2019-11-03 2019-11-03 Outpatient MHHH [facility] [id number] [facility] 07:08:00 07:08:00 2019-02-08 2019-02-08 Outpatient MHHH [facility] [id number] [facility] 08:13:00 08:13:00 Results This patient has no known results.
--- OUTSIDE RECORDS SUMMARY | 2021-11-05 05:23 | XMS REPORT | Clinical Summary ---
:1945 Author Organization [facility] MD Kitchen [facility] Address [address] [place] [address] Care Team Providers Name Role Phone Chance Schaefer MD Unavailable Ken Jacobsen MD Unavailable Loida Mary MD Primary Care Provider Allergies Active Allergy Reactions Severity Noted Date Comments Scopolamine Other (See Comments) Medium 01/02/2016 Medications Medication Sig Dispensed Refills Start Date End Date Status co-enzyme Q-10 30 mg Take 30 mg by mouth 0 Active capsule daily. ZINC ACETATE ORAL Take 1 tablet by 0 Active mouth daily. BIOTIN ORAL Take 1 tablet by 0 A ctive mouth daily. CANNABIDIOL, CBD, Take 1 application 0 Active EXTRACT ORAL by mouth daily. vitamin B complex Take 1 capsule by 0 Active capsule mouth daily. TURMERIC ORAL Take by mouth 0 Ac tive daily. acetaminophen Take 2 tablets (650 30 tablet 0 04/29/2019 Active (TYLENOL) 325 mg mg) by mouth every tabletIndications: 4 (four) hours as Squamous cell needed for mild carcinoma of skin of pain, headaches or scalp fever. Additional Information Patient not taking. Informan t: Self, Reported on 11/16/2020 traMADol (ULTRAM) 50 mg Take 1 tablet (50 mg) 30 tablet 0 04/05 Active tabletIndications: Squamous cell by mouth every 6 carcinoma of skin of scalp (six) hours as needed for moderate pain. metoprolol succinate (TOPROL XL) Take 1 tablet (25 mg) 30 tablet 0 05/02/2019 Active 25 mg 24 hr tabletIndications: by mouth daily. 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 03/09/2019 Encounters Date Type Specialty Care Team Description 11/16/2020 Office Visit Dermatology Albert Mary, Actinic ke ratosis (Primary Dx); Seborrheic keratosis; Shelia Mcgarry, Marlena b enign melanocytic nevi; History of squa mous cell carcinoma of skin; History of ines gnant basal cell neoplasm of skin 11/16/2020 Travel 11/07/2020 Orders Only Infectious Diseases Rosa M Kahn MD S ARS-CoV-2 vaccination after 11/05/2020 Surgical History Surgery Date Site/Laterality Comments BACK SURGERY SPINAL FUSION APPENDECTOMY HYSTERECTOMY WRIST SURGERY TONSILLECTOMY FOOT SURGERY BOWEL RESECTION HERNIA REPAIR REDUCTION MAMMAPLASTY TEAR DUCT SURGERY MOHS PROCEDURE scalp MA EXC SKIN MALIG 0.6-1 CM 04/26/2019 Midline Proce dure: EXCISION OF REMAINDR BODY MALIGNANT LESION OF SCALP; Surgeon: Albert Mary MD; Location: MAIN O R; Service: HN - HEAD & NECK SURGERY Medical devices from this surgery are in t Implants section. MA SPLIT 04/26/2019 Thigh/Right Procedure: SPLIT THICKNESS GRFT,HEAD,FAC,HAND,FEET <100 SKI N GRAFT to scalp; Surgeon: [facility] Chuck Allred MD; Location: MAIN OR; Servic e: PLS - PLASTIC SURGERY Medical devices from this surgery are in t he Implants section. MA FREE SKIN FLAP W MICROVASC 04/26/2019 Thigh/Left Pr ocedure: FREE SKIN OR ANAST FASCIOCUTANOUS F LAP; Surgeon: Chuck Allred MD; Location: MAIN OR; Servic e: PLS - PLASTIC SURGERY Medical devices from this surgery are in t Implants section. Medical History Medical History Date Comments Cancer Hypertension Scoliosis H/O: Tia Family History Medical History Relation Name Comments Lung cancer Father Breast cancer Mother Relation Name Status Comments Father Mother Social History Tobacco Use Types Packs/Day Years Used Date Former Smoker Cigarettes 0.5 10 Smokeless Tobacco: Never Used Comments: currently vaping Alcohol Use Standard Drinks/Week Comments Yes 3 (1 standard drink = 0.6 oz pure alcoho l) Sex Assigned at Date Recorded Not on file Obstetrics History Last Filed Vital Signs Vital Sign Reading Time Taken Comments Blood Pressure 156/80 11/16/2020 11:00 AM LAB ANIMAL TECHNOLOGIST Pulse 74 11/16/2020 11:00 AM LAB ANIMAL TECHNOLOGIST Temperature 36.6 C (97.9 F) 11/16/2020 11:00 AM LAB ANIMAL TECHNOLOGIST Respiratory Rate - - Oxygen Saturation 98% 11/16/2020 11:00 AM LAB ANIMAL TECHNOLOGIST Inhaled Oxygen Concentration - - Weight - - Height - - Body Mass Index - - Plan of Treatment Health Maintenance Due Date Last Done Comments COVID-19 Vaccination (1) 1950 Implants Implanted Type Area Alpine Guide Device Shelf Model / Identifier Expiration Serial / Date Lot Whipped Topping Supervisor Microvascular Anastomotic Device 2.5mm - [id number] Card ioPulm Right: 800APP 02/22/2024 [id number] / Implanted: Qty: 1 on 04/26/2019 by Chuck Allred MD at [facility] / [id number] Results Not on fileafter 11/05/2020 Insurance Payer Benefit Plan / Subscriber ID Effective Dates Phone Addre ss Type Group AETNA MEDICARE AETNA MEDICARE [id number] 2016-Aaliyah AYALA [id number] [place] [id number] Advance Directives Code Status Date Activated Date Inactivated Comments Full Code 04/26/2019 7:19 AM 05/02/2019 4:35 PM Care Teams Igniter Capper Relationship Specialty Start Date End Date Chance Schaefer, STARR - External Follow Dermatology 03/01/19 [address] [place] [address] Jorge Luis Jacobsen PCP - External Primary Internal Medicine 03/01/19 MD Ken Care Provider [address] [place] [phone] Albert Mary MD PCP - General Head and Neck Surgery 03/01/[address] [place] [address] [phone]
--- NOTE | 2021-11-05 06:08 | EDPHYS ---
Physician Documentation [facility] Name: Desiree Fernandez Age: 76 yrs Sex: Female : 1945 Arrival Date: 11/05/2021 Time: 05:23 Bed 5 Private MD: Jorge Luis Jacobsen V ED Physician Tacos Will HPI: 11/05 06:04 This 76 yrs old Female presents to ER via Ambulatory with complaints of lamin Rectal Bleeding. 06:04 The patient presents to the emergency department with bleeding from the rectum/anus, lamin that is moderate. Onset: The symptoms/episode began/occurred last night. Context: the patient has no known special context relating to the rectal area complaint(s). Modifying factors: The symptoms are alleviated by remaining still, The symptoms are aggravated by bowel movement, sitting position. Associate signs and symptoms: The patient has no apparent associated signs or symptoms. The patient has not experienced similar symptoms in the past. Historical: - Allergies: 05:31 Scopolamine HBr; tw5 - PMHx: 05:31 Hypertension; skin graft malignant tumor removed; SVT; tw5 - Immunization history:: Flu vaccine is up to date. - Social history:: Smoking status: Patient reports the use of cigarette tobacco products, " Sometimes I smoke those little cigars.". - Family history:: not pertinent. ROS: 06:04 Constitutional: Negative for fever, chills, and weight loss, Eyes: Negative for injury, lamin pain, redness, and discharge, ENT: Negative for injury, pain, and discharge, Neck: Negative for injury, pain, and swelling, Cardiovascular: Negative for chest pain, palpitations, and edema, Respiratory: Negative for shortness of breath, cough, wheezing, and pleuritic chest pain, Back: Negative for injury and pain, : Negative for injury, bleeding, discharge, and swelling, MS/Extremity: Negative for injury and deformity, Skin: Negative for injury, rash, and discoloration, Neuro: Negative for headache, weakness, numbness, tingling, and seizure, Psych: Negative for depression, anxiety, suicide ideation, homicidal ideation, and hallucinations, Allergy/Immunology: Negative for hives, rash, and allergies, Endocrine: Negative for neck swelling, polydipsia, polyuria, polyphagia, and marked weight changes, Hematologic/Lymphatic: Negative for swollen nodes, abnormal bleeding, and unusual bruising. 06:04 Abdomen/GI: Positive for bowel incontinence, of the left lower quadrant. Exam: 06:04 Constitutional: This is a well developed, well nourished patient who is awake, alert, lamin and in no acute distress. Head/Face: Normocephalic, atraumatic. Eyes: Pupils equal round and reactive to light, extra-ocular motions intact. Lids and lashes normal. Conjunctiva and sclera are non-icteric and not injected. Cornea within normal limits. Periorbital areas with no swelling, redness, or edema. ENT: Nares patent. No nasal discharge, no septal abnormalities noted. Tympanic membranes are normal and external auditory canals are clear. Oropharynx with no redness, swelling, or masses, exudates, or evidence of obstruction, uvula midline. Mucous membranes moist. Neck: Trachea midline, no thyromegaly or masses palpated, and no cervical lymphadenopathy. Supple, full range of motion without nuchal rigidity, or vertebral point tenderness. No Meningismus. Chest/axilla: Normal chest wall appearance and motion. Nontender with no deformity. No lesions are appreciated. Cardiovascular: Regular rate and rhythm with a normal S1 and S2. No gallops, murmurs, or rubs. Normal PMI, no JVD. No pulse deficits. Respiratory: Lungs have equal breath sounds bilaterally, clear to auscultation and percussion. No rales, rhonchi or wheezes noted. No increased work of breathing, no retractions or nasal flaring. Back: No spinal tenderness. No costovertebral tenderness. Full range of motion. Female : Normal external genitalia. Skin: Warm, dry with normal turgor. Normal color with no rashes, no lesions, and no evidence of cellulitis. MS/ Extremity: Pulses equal, no cyanosis. Neurovascular intact. Full, normal range of motion. Neuro: Awake and alert, GCS 15, oriented to person, place, time, and situation. Cranial nerves II-XII grossly intact. Motor strength 5/5 in all extremities. Sensory grossly intact. Cerebellar exam normal. Normal gait. Psych: Awake, alert, with orientation to person, place and time. Behavior, mood, and affect are within normal limits. 06:04 Abdomen/GI: Inspection: abdomen appears normal, Bowel sounds: normal, Palpation: nontender, Rectal exam: rectal tone normal, Stool: grossly bloody, hemorrhoid(s), are not appreciated, mass, that is small, swelling, is not appreciated, tenderness, is not appreciated, Liver: no appreciated palpable abnormalities, Hernia: not appreciated. 07:35 ECG was reviewed by the Attending Physician. Vital Signs: 05:26 Resp 18; Temp 97.8; Weight 83.91 kg; Height 5 ft. 5 in. (165.10 cm); Pain 0/10; lg3 05:46 BP 99 / 60; Pulse 88; Resp 17; Pulse Ox 96% on R/A; ll3 08:00 BP 119 / 71; Pulse 77; Resp 17; Pulse Ox 94% on R/A; jd3 10:25 BP 109 / 63; Pulse 83; Resp 18 S; Pulse Ox 95% on R/A; jd3 11:00 BP 119 / 75; Pulse 85; Resp 19; Pulse Ox 96% on R/A; ke1 05:26 Body Mass Index 30.79 (83.91 kg, 165.10 cm) lg3 MDM: 05:48 Patient medically screened. lamin 05:52 Patient medically screened. lamin 07:06 Differential diagnosis: hemorrhoids. Data reviewed: vital signs, nurses notes, lab test [facility] result(s), EKG, radiologic studies, CT scan, plain films. Data interpreted: desk monitor: rate is 88 beats/min, rhythm is regular, Pulse oximetry: on room air is 96 %. Test interpretation: by ED physician or midlevel provider: ECG, plain radiologic studies. Counseling: I had a detailed discussion with the patient and/or guardian regarding: the historical points, exam findings, and any diagnostic results supporting the discharge/admit diagnosis, lab results, radiology results, the need to transfer to another facility, for higher level of care, [facility] does not immediately have the required specialist. 11/05 06:04 Order name: Basic Metabolic Panel [facility] 11/05 06:04 Order name: CBC with Diff; Complete Time: 07:14 [facility] 11/05 07:21 Interpretation: Normal except: MCV 103.6; MCH 35.4. cp 11/05 06:04 Order name: LFT's [facility] 11/05 08:32 Interpretation: Normal except: GLOB 4.0; A/G 0.9. cp 11/05 06:04 Order name: Magnesium [facility] 11/05 06:04 Order name: NT PRO-BNP [facility] 11/05 06:04 Order name: PT-INR; Complete Time: 07:05 [facility] 11/05 06:04 Order name: Troponin HS [facility] 11/05 06:04 Order name: XRAY Chest (1 view); Complete Time: 07:49 [facility] 11/05 06:04 Order name: Type And Screen; Complete Time: 07:49 [facility] 11/05 06:04 Order name: SARS-COV-2 RT PCR (Document "Date of Onset" if Symptomatic); Complete Time: [facility] 09:46 11/05 06:04 Order name: Lipase [facility] 11/05 06:04 Order name: Basic Metabolic Panel [facility] 11/05 08:32 Interpretation: Normal except: CL 109; GLUC 122; BUN 21; GFR 63. cp 11/05 07:55 Order name: Urine Dipstick-Ancillary; Complete Time: 08:29 [facility] 11/05 08:29 Interpretation: Normal except: UBLD 2+; UESTR Trace. cp 11/05 09:56 Order name: ABO/RH no charge [facility] 11/05 06:04 Order name: EKG; Complete Time: 06:04 [facility] 11/05 06:04 Order name: Cardiac monitoring; Complete Time: 06:05 [facility] 11/05 06:04 Order name: EKG - Nurse/Tech; Complete Time: 07:38 [facility] 11/05 06:04 Order name: IV Saline Lock; Complete Time: 07:01 [facility] 11/05 06:04 Order name: Labs collected and sent; Complete Time: 07:01 [facility] 11/05 06:04 Order name: O2 Per Protocol; Complete Time: 06:05 [facility] 11/05 06:04 Order name: O2 Sat Monitoring; Complete Time: 06:04 [facility] 11/05 06:04 Order name: CT Abd/Pelvis - IV Contrast Only; Complete Time: 09:46 [facility] 11/05 06:04 Order name: Urine Dipstick-Ancillary (obtain specimen); Complete Time: 07:57 [facility] 11/05 06:04 Order name: IV Saline Lock - Large Bore; Complete Time: 07:01 [facility] EC:35 Rate is 76 beats/min. Rhythm is regular. HI interval is normal. QRS interval is normal. cp QT interval is normal. T waves are Inverted in lead aVR. Interpreted by me. Reviewed by me. Administered Medications: 07:00 Drug: Flagyl (metroNIDAZOLE) 500 mg Volume: 100 ml; Route: IVPB; Rate: 200 ml/hr; ll3 Infused Over: 30 mins; Site: left antecubital; 08:00 Follow up: Response: No adverse reaction; IV Status: Completed infusion jd3 07:35 Drug: NS 0.9% 500 ml Route: IV; Rate: bolus; Site: left antecubital; jd3 08:35 Follow up: Response: No adverse reaction; IV Status: Completed infusion; IV Intake: jd3 500ml 07:35 Drug: Cipro (ciprofloxacin) 400 mg Volume: 200 ml; Route: IVPB; Infused Over: 60 mins; jd3 Site: left antecubital; 08:30 Follow up: Response: No adverse reaction; IV Status: Completed infusion jd3 07:36 Drug: NS 0.9% 1000 ml Route: IV; Rate: 125 ml/hr; Site: left antecubital; jd3 11:43 Follow up: Response: No adverse reaction; IV Status: Order to discontinue infusion ke1 08:55 Drug: fentaNYL (PF) 25 mcg Route: IVP; Site: left antecubital; ke1 09:55 Follow up: Response: No adverse reaction; RASS: Alert and Calm (0) jd3 08:56 Drug: NS 0.9% 500 ml Route: IV; Rate: bolus; Site: left antecubital; ke1 09:55 Follow up: Response: No adverse reaction; IV Status: Completed infusion; IV Intake: jd3 500ml Disposition: 15:15 Co-signature as Attending Physician, Tacos Will MD I agree with the assessment and lamin plan of care. Disposition Summary: 11/05/21 06:07 Transfer Ordered Transfer Location: [facility] lamin Reason: Higher level of care lamin Condition: Stable lamin Problem: new lamin Symptoms: have improved lamin Accepting Physician: DR Shah(11/05/21 11:42) ke1 Diagnosis - GI Bleed/ Gastrointestinal hemorrhage, unspecified - LOWER lamin - Colitis cp Forms: - Medication Reconciliation Form lamin - SBAR form lamin Signatures: Dispatcher [employer] Tacos Dia MD MD cha Nieto, Roman, MD MD rn Page, JACOBY Balderrama cp, Jonathon RN RN jd3 Macey Felix tw5 Law Hubbard RN RN ll3 Christine Larsen RN RN ke1 Corrections: (The following items were deleted from the chart) 08:54 06:07 MEDICINE / GI [facility] cp 09:47 08:54 DR Alyssa flores cp 11:42 09:47 DR Alyssa flores ke1
--- NOTE | 2021-11-05 06:08 | ER ---
Nurse's Notes [facility] Name: Desiree Fernandez Age: 76 yrs Sex: Female : 1945 Arrival Date: 11/05/2021 Time: 05:23 Bed 5 Private MD: Jorge Luis Jacobsen V Diagnosis: GI Bleed/ Gastrointestinal hemorrhage, unspecified-LOWER;Colitis Presentation: 11/05 05:27 Chief complaint: Patient states: "Been pooping bright red. I thought I was going to [facility] have diarrhea. I see a pain doc all the time so I am usually constipated. I woke up at 4 AM and it was a lot of bright red blood,:. Coronavirus screen: Vaccine status: Patient reports receiving the 2nd dose of the covid vaccine. [employer]. Ebola Screen: Patient negative for fever greater than or equal to 101.5 degrees Fahrenheit, and additional compatible Ebola Virus Disease symptoms Patient denies exposure to infectious person. Patient denies travel to an Ebola-affected area in the 21 days before illness onset. Risk Assessment: Do you want to hurt yourself or someone else? Patient reports no desire to harm self or others. Onset of symptoms was November 05, 2021 at 04:00. 05:27 Acuity: APURVA 3 lg3 05:27 Method Of Arrival: Ambulatory 3 06:00 Initial Sepsis Screen: Does the patient meet any 2 criteria? No. Patient's initial ll3 sepsis screen is negative. Does the patient have a suspected source of infection? No. Patient's initial sepsis screen is negative. Triage Assessment: 05:31 General: Appears in no apparent distress. uncomfortable, Behavior is calm, cooperative, tw5 appropriate for age. Pain: Denies pain. Historical: - Allergies: 05:31 Scopolamine HBr; tw5 - PMHx: 05:31 Hypertension; skin graft malignant tumor removed; SVT; tw5 - Immunization history:: Flu vaccine is up to date. - Social history:: Smoking status: Patient reports the use of cigarette tobacco products, " Sometimes I smoke those little cigars.". - Family history:: not pertinent. Screenin:32 Abuse screen: Denies threats or abuse. Denies injuries from another. Nutritional tw5 screening: No deficits noted. Tuberculosis screening: No symptoms or risk factors identified. Fall Risk No fall in past 12 months (0 pts). Assessment: 05:46 General: Appears in no apparent distress. uncomfortable, Behavior is calm, cooperative. ll3 Pain: Denies pain. Neuro: Level of Consciousness is awake, alert, obeys commands, Oriented to person, place, time, situation, Speech is normal. Cardiovascular: Patient's skin is warm and dry. Respiratory: Respiratory effort is even, unlabored, Respiratory pattern is regular, symmetrical. GI: Abdomen is round distended, Bowel sounds present X 4 quads. Abd is soft and non tender X 4 quads. Mass noted in left lower quadrant Reports bloody stool, since Last night at 10 pm. : Denies. Derm: Skin is pink, warm \\T\\ dry. 08:01 General: Appears in no apparent distress. comfortable, Behavior is calm, cooperative, jd3 appropriate for age. Pain: Denies pain. Neuro: Level of Consciousness is awake, alert, obeys commands, Oriented to person, place, time, situation. Cardiovascular: Capillary refill < 3 seconds Patient's skin is warm and dry. Respiratory: Airway is patent Respiratory effort is even, unlabored, Respiratory pattern is regular, symmetrical. GI: Abdomen is round distended, Abd is soft and non tender X 4 quads. Reports bloody stool. 10:24 Reassessment: Patient appears in no apparent distress at this time. No changes from jd3 previously documented assessment. Patient and/or family updated on plan of care and expected duration. Pain level reassessed. Patient is alert, oriented x 3, equal unlabored respirations, skin warm/dry/pink. report given to Marta RN at [facility]. pt signed transfer paperwork. Vital Signs: 05:26 Resp 18; Temp 97.8; Weight 83.91 kg; Height 5 ft. 5 in. (165.10 cm); Pain 0/10; lg3 05:46 BP 99 / 60; Pulse 88; Resp 17; Pulse Ox 96% on R/A; ll3 08:00 BP 119 / 71; Pulse 77; Resp 17; Pulse Ox 94% on R/A; jd3 10:25 BP 109 / 63; Pulse 83; Resp 18 S; Pulse Ox 95% on R/A; jd3 11:00 BP 119 / 75; Pulse 85; Resp 19; Pulse Ox 96% on R/A; ke1 05:26 Body Mass Index 30.79 (83.91 kg, 165.10 cm) lg3 ED Course: 05:23 Patient arrived in ED. es 05:23 Jorge Luis Jacobsen MD is Private Physician. es 05:28 Triage completed. lg3 05:31 Arm band placed on right wrist. tw5 05:46 Law Hubbard, MAYA is Primary Nurse. ll3 05:48 Tacos Will MD is Attending Physician. lamin 06:01 Patient has correct armband on for positive identification. Bed in low position. Call ll3 light in reach. Side rails up X 1. Adult w/ patient. 06:15 XRAY Chest (1 view) In Process Unspecified. EDMS 06:34 initiated a transfer with Nisha Santamaria from [facility]. mw2 07:00 Inserted saline lock: 22 gauge in left. jd3 07:20 Tacos Aranda PA is PHCP. cp 07:35 Primary Nurse role handed off by Law Hubbard, MAYA jd3 07:35 Clifton Agustin RN is Primary Nurse. jd3 08:51 pt accepted in transfer to [facility] by dr Shah, admin approval given by julio Thomas. 08:57 mary care provided, blood noted and cleaned.. ke1 09:11 CT Abd/Pelvis - IV Contrast Only In Process Unspecified. EDMS 11:41 No provider procedures requiring assistance completed. ke1 11:41 Patient transferred, IV remains in place. ke1 Administered Medications: 07:00 Drug: Flagyl (metroNIDAZOLE) 500 mg Volume: 100 ml; Route: IVPB; Rate: 200 ml/hr; ll3 Infused Over: 30 mins; Site: left antecubital; 08:00 Follow up: Response: No adverse reaction; IV Status: Completed infusion jd3 07:35 Drug: NS 0.9% 500 ml Route: IV; Rate: bolus; Site: left antecubital; jd3 08:35 Follow up: Response: No adverse reaction; IV Status: Completed infusion; IV Intake: jd3 500ml 07:35 Drug: Cipro (ciprofloxacin) 400 mg Volume: 200 ml; Route: IVPB; Infused Over: 60 mins; jd3 Site: left antecubital; 08:30 Follow up: Response: No adverse reaction; IV Status: Completed infusion jd3 07:36 Drug: NS 0.9% 1000 ml Route: IV; Rate: 125 ml/hr; Site: left antecubital; jd3 11:43 Follow up: Response: No adverse reaction; IV Status: Order to discontinue infusion ke1 08:55 Drug: fentaNYL (PF) 25 mcg Route: IVP; Site: left antecubital; ke1 09:55 Follow up: Response: No adverse reaction; RASS: Alert and Calm (0) jd3 08:56 Drug: NS 0.9% 500 ml Route: IV; Rate: bolus; Site: left antecubital; ke1 09:55 Follow up: Response: No adverse reaction; IV Status: Completed infusion; IV Intake: jd3 500ml Intake: 08:35 IV: 500ml; Total: 500ml. jd3 09:55 IV: 500ml; Total: 1000ml. jd3 Outcome: 06:07 ER care complete, transfer ordered by MD. kimble 11:41 Condition: stable ke1 11:41 Instructed on the need for transfer. ke1 11:41 Transferred by ground EMS to [facility], Transfer form completed. ke1 X-rays sent w/ patient. 11:42 Patient left the ED. ke1 Signatures: Dispatcher [employer] Tanya Ortega Corey, MD MD cha Salyer, Tacos Paz, PA Clifton Mccann cp, RN RN jd3 Sahra Dejesus mw2 Macy Santamaria RN RN 3 Macey Felix 5 Law Hubbard RN RN ll3 Christine Larsen RN RN ke1 Corrections: (The following items were deleted from the chart) 10:30 10:24 Reassessment: Patient appears in no apparent distress at this time. No changes jd3 from previously documented assessment. Patient and/or family updated on plan of care and expected duration. Pain level reassessed. Patient is alert, oriented x 3, equal unlabored respirations, skin warm/dry/pink. report given to Marta RN at [facility] jd3
[2021-11-05] MEDS ORDERED: NA CHLORIDE 0.9% 500 ML ONE ×2 (06:09→08:09)
[2021-11-05] MEDS ORDERED: NA CHLORIDE 0.9% 1,000 ML ONE (06:09)
[2021-11-05] MEDS ORDERED: CIPROFLOXACIN 400mg IV 400 MG/200 ML BAG IV ONE (06:10)
[2021-11-05] MEDS ORDERED: METRONIDAZOLE 500mg IVPB 500 MG/100 ML BAG IV ONE (06:12)
[2021-11-05 07:02] LABS: Absolute Lymphocytes (CBC) 3.1 K/uL (0.7-4.9); Hematocrit 40.3 % (36.0-45.0); Lymphocytes % 29.3 % (15.3-44.8); MPV 8.5 fL (7.6-11.3); RBC Red Blood Cell Count 3.89 M/uL (3.86-4.86)
[2021-11-05 07:03] LABS: Protime INR 0.94
--- NOTE | 2021-11-05 07:28 | RAD REPORT ---
EXAM DESCRIPTION: RAD - Chest Single View - 11/05/2021 6:15 am CLINICAL HISTORY: COUGH COMPARISON: Chest Single View dated 03/07/2020; CHEST PA AND LAT 2 VIEW dated 08/06/2011; CHEST SINGLE VIEW dated 02/15/2011; CHEST SINGLE VIEW dated 02/12/2011 FINDINGS: Lines: None. Lungs: No evidence of edema or pneumonia. Pleural: No significant pleural effusions or pneumothorax. Cardiac: The heart size is within normal limits. Bones: No acute fractures. Other: IMPRESSION: No acute cardiopulmonary disease.
[2021-11-05 07:55] LABS: Urine Blood 2+ (Negative); Urine Glucose Negative (Negative); Urine Protein Negative (Negative)
[2021-11-05 08:30] LABS: ALT/SGPT 26 U/L (12-78); AST/SGOT 15 U/L (15-37); Albumin 3.5 g/dL (3.4-5.0); Alkaline Phosphatase 58 U/L (45-117); BUN Blood Urea Nitrogen 21 mg/dL (7-18); Bicarbonate 24 mmol/L (21-32); Bilirubin Direct < 0.1 mg/dL (0-0.2); Bilirubin Total 0.3 mg/dL (0.2-1.0); Glucose Level 122 mg/dL (74-106); Lipase 99 U/L (73-393); NT PRO-BNP 94 pg/mL (<450); Potassium 4.1 mmol/L (3.5-5.1); Protein, Total 7.5 g/dL (6.4-8.2); Sodium Level 140 mmol/L (136-145)
[2021-11-05] MEDS ORDERED: FENTANYL CITR 100 MCG/2 ML ONE (08:41)
--- NOTE | 2021-11-05 09:21 | RAD REPORT ---
EXAM DESCRIPTION: CTAbdomen Pelvis W Contrast - 11/05/2021 9:11 am CLINICAL HISTORY: ABD PAIN COMPARISON: No comparisons TECHNIQUE: CT of the abdomen and pelvis was performed. All CT scans are performed using dose optimization technique as appropriate and may include automated exposure control or mA/KV adjustment according to patient size. FINDINGS: Lower chest: Hiatal hernia with thickened distal esophagus. Liver: No acute abnormality or suspicious lesions. Biliary: No biliary ductal dilatation. Stomach: Gastric band in place. Duodenum: No significant focal abnormality. Pancreas: No significant abnormality. Spleen: No significant abnormality. Adrenal: No suspicious lesions. Kidney/ureter: No hydronephrosis. No renal calculi. Retroperitoneum: No retroperitoneal adenopathy. Vascular: Atherosclerosis. Bowel: Mild circumferential wall thickening and hyperenhancement at the proximal and mid sigmoid colo n. At the distal sigmoid, the ledezma hyperenhancing but not thickened. Formed stool in the distal smal l bowel suggests slow transit. Peritoneum: No ascites or free air. Bowel containing ventral hernia. No bowel obstruction. Bladder: Grossly unremarkable. Reproductive: No adnexal masses. Bones: No acute fracture. Multilevel degenerative changes are present in the spine. . Osteopenia. Rem ote left obturator ring fracture. Other: n/a IMPRESSION: Wall thickening and hyperenhancement at the sigmoid colon concerning for colitis. No com plicating features.
[2021-11-05 12:20] VITALS: TEMP 97.8
[2021-11-05 12:25] VITALS: BP 119/75; O2SAT 96
--- NOTE | 2021-11-06 13:08 | EKG ---
Test Date: 2021-11-05 Test Time: 07:26:13 Is Project Manager: EDWARD MEASUREMENT RESULTS: Intervals: Rate: 76 IN: 158 QRSD: 82 QT: 416 QTc: 468 [place]: P: 14 IN: 158 QRS: -23 T: -14 INTERPRETIVE STATEMENTS: Sinus rhythm with premature atrial complexes Minimal voltage criteria for LVH, may be normal variant Possible Anterior infarct, age undetermined Abnormal ECG Compared to ECG 03/07/2020 02:40:20 Atrial premature complex(es) now present Left ventricular hypertrophy now present Myocardial infarct finding now present Electronically Signed On 11-06-21 13:03:27 PARTS SPECIALIST by Joe Gonzalez
== END 2021-11-05 11:42 | disposition short-term general hospital (02) ==
LOC: ER 05:19
DX: K52.9 Noninfective gastroenteritis and colitis, unspecified (principal)
CPT/HCPCS: 96365; 96361; 93005; 85025; 80048; 36415; 86900; 83735; 86850; 85610; 86901; 80076; 81003; 84484; 83690; 83880; 74177; 71045; 96375; 99285; U0003; Q9967; J3010; J7040 ×2; J7030; J0744